=== PATIENT | male | born 1985 | race Caucasian/White ===

== ENCOUNTER 2017-04-09 19:09 | Observation (INO) | payer SELFPAY ==
[~2017-04-09] VITALS: Ht 172.7 cm; Wt 75.5 kg
--- NOTE | ~2017-04-09 | HP ---
PATIENT'S NAME: JOLYNN [facility] AGE: 31 Y [address] ROOM: [place] [address] LOCATION: [facility] ADMIT DATE: 04/09/2017 History & Physical DISCHARGE DATE: 04/10/2017 FAMILY PHYSICIAN: Physician, Unknown ATTENDING PHYSICIAN: Zach Bowie DATE OF SERVICE: 04/09/2017 CHIEF COMPLAINT: Rattlesnake bite, right midanterior lower leg. HISTORY OF PRESENT ILLNESS: A 31-year-old gentleman who was working with the [employer] was bit by a rattlesnake on the right green and was taken to [facility], where he was started on IV fluids, basic lab work was initiated, and he was given 4 vials of antivenom and he was transferred here for further medical care. On my evaluation, he is saying that he is having some pain in the right leg and he did not see the snake come in. He is not complaining of any burning or itching, but there is some pain at the site of the bite. On further inquiry, he denied any fever, chills, headache, trouble with the eyes, any chest pain, shortness of breath, any extremity swelling, burning on urination, constipation, or diarrhea. HOME MEDICATIONS: None. PAST MEDICAL HISTORY: None. ALLERGIES: NONE. SOCIAL HISTORY: The patient smokes 1 to 2 pack per day. FAMILY HISTORY: Negative for any premature coronary artery disease. REVIEW OF SYSTEMS: All other systems were reviewed and were negative except what is mentioned in the HPI. PHYSICAL EXAMINATION: VITAL SIGNS: Reviewed and were within normal limits. HEENT: Head: Atraumatic, normocephalic. Eyes: Nonicteric. No pallor. PATIENT'S NAME: JOLYNN [facility] AGE: 31 Y [address] ROOM: [place] [address] LOCATION: [facility] ADMIT DATE: 04/09/2017 History & Physical DISCHARGE DATE: 04/10/2017 FAMILY PHYSICIAN: , Unknown ATTENDING PHYSICIAN: Zach Bowie Oropharynx: Moist mucous membranes. CARDIOVASCULAR: S1, S2. No murmurs, gallops, or rubs. LUNGS: Clear to auscultation bilaterally. ABDOMEN: Soft, nontender, nondistended. Bowel sounds present. EXTREMITIES: Right lower leg at the anterior green shows 2 entry wounds of snakebite, mild erythema around the site, some tenderness noted, and no drainage present. PSYCH: Normal affect, mood, and speech. LABORATORY DATA: All the lab work done in the emergency department was within normal limit including coagulation workup. ASSESSMENT: 1. Rattlesnake bite. 2. Tobacco abuse disorder. PLAN: We are going to admit this patient to the hospital. We will continue to monitor him. If erythema is expanding, we are going to give another dose of antivenom. Poison Control will be contacted and if needs the patient will be transferred for higher medical care. MD ISABELA WOLFF/sofiya /[id number] D: [id number] T: [id number] HISTORY & PHYSICAL
--- NOTE | ~2017-04-09 | DS ---
PATIENT'S NAME: JENNIFER NEIL [facility] AGE: 31 Y [address] [place]OM: [facility] [place] [address] LOCATION: [facility] ADMIT DATE: 04/09/2017 Discharge Summary DISCHARGE DATE: 04/10/2017 FAMILY PHYSICIAN: Physician, Unknown ATTENDING PHYSICIAN: Zach Bowie PRINCIPAL DIAGNOSES: 1. Rattlesnake bite to the right mid green. 2. Worsening erythema and clinical status secondary to snake bite. HOSPITAL COURSE: This is a 31-year-old gentleman who was admitted with a rattlesnake bite to the right chin. He received 2 doses of antivenom, but he continues to have progression of his erythema, tenderness, as well as pain. Poison Control recommended transferring the patient to higher level of care, and my colleague, Dr. Guadalupe, arranged the transfer and the patient was transferred to the [facility]. Lab work during the course of the hospitalization was unremarkable. MD ISABELA WOLFF/sofiya /[id number] d: 05/14/17512 t: 05/15/172027, DISCHARGE SUMMARY
--- NOTE | ~2017-04-09 | ER ---
PATIENT'S NAME: JOLYNN [facility] AGE: 31 Y [address] ROOM: [place] [address] LOCATION: [facility] ADMIT DATE: 04/09/2017 ER/Outpatient Report DISCHARGE DATE: FAMILY PHYSICIAN: Physician, Unknown ATTENDING PHYSICIAN: Rizwan Ring Admission date and time documented on the medical record. I saw the patient at 1920 hours. CHIEF COMPLAINT: Rattlesnake bite, right mid anterior lower leg. HISTORY OF PRESENT ILLNESS: The patient is a 31-year-old male who was bit by a rattlesnake, mid anterior right lower leg, that he says about around 1700 hours. He was seen in hospital in [place], [place]. He was started on IV fluids, given a liter. He was given 4 vials of antivenom in 250 mL of normal saline and given over an hour. That initial antivenom dose was finished just prior to arrival here by air ambulance transfer. On arrival, the patient is awake, alert, responsive. No chest pain or shortness of breath. No numbness or tingling. He does have pain around the bite site, that has increased a little bit in swelling and area of tenderness. There is no erythema. No drainage. He does have some pain going into his mid calf posteriorly. No other neuro changes. No vital sign abnormalities. HOME MEDICATIONS: None. ALLERGIES: NONE. SOCIAL HISTORY: The patient smokes 1-2 packs cigarettes a day. Occasional marijuana. Nondrinker. SIGNIFICANT PAST MEDICAL HISTORY: ADHD, tobacco abuse, otherwise negative. OPERATIONS: None. REVIEW OF SYSTEMS: All systems reviewed by me are negative with the exception of those discussed in the history of present illness. PATIENT'S NAME: JOLYNN [facility] AGE: 31 Y [address] ROOM: [place], [place] [address] LOCATION: [facility] ADMIT DATE: 04/09/2017 ER/Outpatient Report DISCHARGE DATE: FAMILY PHYSICIAN: Physician, Unknown ATTENDING PHYSICIAN: Rizwan Ring PHYSICAL EXAMINATION: VITAL SIGNS: Temperature 97.4 tympanic, pulse 65, respirations 16, blood pressure 125/78, and O2 saturation on room air was 99%. HEAD: Normocephalic. EYES, EARS, NOSE, THROAT: Clear. Mucous membranes moist. NECK: No nuchal rigidity. No findings of adenopathy. No tenderness. Range of motion full. SPINE: Negative. LUNGS: Clear. Good air flow. Few scattered rhonchi from smoking, otherwise, clear. HEART: Regular. Pulses palpable. No chest wall or ribcage pain to palpation. ABDOMEN: Soft, nondistended, and nontender. Good bowel tones. No organomegaly or abnormal mass palpable. EXTREMITIES: Intact other than the right lower leg. The patient has a snake bite puncture wounds, mid anterior right lower leg, with some swelling and tenderness surrounding this area moving into his calf posteriorly. NEUROVASCULAR: Intact. SKIN: Clear. No skin eruptions or rash other than the bite marybeth in the right mid anterior lower leg. EMERGENCY ROOM COURSE: Did review all of the laboratory studies from [place], [place], see on the chart. Again, the patient did receive 1 L normal saline, 4 vials of antivenom in 250 mL of normal saline, that infused over an hour. He also got 50 mg of Benadryl IV en route in the helicopter. I did go ahead and redraw CBC, CMS, CPK, pro-time, and fibrinogen levels, results pending. I did discuss the patient with Dr. Bowie, hospitalist. Dr. Bowie did come in to the emergency room to see the patient. We will admit the patient the hospital. IMPRESSION: 1. Rattlesnake bite, mid right anterior lower leg. 2. Tobacco abuse. 3. Attention-deficit hyperactivity disorder. PLAN: The patient will be admitted to the hospital for observation and treatment as needed. Awaiting lab results. Dr. Bowie here to see the patient. Discussion ensued with the patient concerning my findings and recommendations, he understands. RIZWAN IRNG MD PATIENT'S NAME: JENNIFER NEIL [facility] AGE: 31 Y [address] ROOM: [place] [address] LOCATION: [facility] ADMIT DATE: 04/09/2017 ER/Outpatient Report DISCHARGE DATE: FAMILY PHYSICIAN: Physician, Unknown ATTENDING PHYSICIAN: Rizwan Ring/modl /[id number] d: 04/09/172004 t: 04/10/17 1814, OUTPATIENT REPORT
[2017-04-09 19:41] LABS: BASOPHIL # 0.1 K/uL (0.0-0.2); BASOPHIL % 0.6 %; EOSINOPHIL # 0.5 K/uL (0.0-0.5); EOSINOPHIL % 3.4 %; HEMATOCRIT 41.9 % (37.0-53.0); HEMOGLOBIN 15.1 g/dL (12.0-17.0); IMMATURE GRANULOCYTE # 0.1 K/uL (0.0-0.3); IMMATURE GRANULOCYTE % 0.3 %; LYMPHOCYTE % 19.6 %; MCH 33.6 pg (27.0-34.0); MCV 93.1 fl (83.0-98.0); MONOCYTE # 0.9 K/uL (0.0-1.0); MONOCYTE % 5.6 %; MPV 10.8 fl (9.4-12.4); NEUTROPHIL # (ANC) 10.9 K/uL (1.4-9.0); NEUTROPHIL % 70.5 %; NRBC % 0 /100WBC (0-0.00); PLATELET COUNT 188 K/uL (150-450); RDW-CV 12.6 % (11.9-14.6); WBC 15.4 K/uL (4.0-11.0)
[2017-04-09 19:48] LABS: INR - (THERAPEUTIC) 1.04 (0.92-1.07); PROTIME 10.9 SECONDS (9.8-11.4)
[2017-04-09 20:09] LABS: ALBUMIN 3.7 gm/dL (3.5-5.0); ANION GAP 13.8 (10.0-19.0); CALCIUM 8.1 mg/dL (8.5-10.5); CREATININE 1.1 mg/dL (0.6-1.3); POTASSIUM 3.8 mMol/L (3.7-5.1); TOTAL BILIRUBIN 0.5 mg/dL (0.0-1.5); TOTAL PROTEIN 6.4 g/dL (6.0-8.4)
[2017-04-09 23:08] LABS: BASOPHIL # 0.1 K/uL (0.0-0.2); BASOPHIL % 0.6 %; EOSINOPHIL # 0.6 K/uL (0.0-0.5); EOSINOPHIL % 3.9 %; HEMATOCRIT 39.8 % (37.0-53.0); HEMOGLOBIN 14.4 g/dL (12.0-17.0); IMMATURE GRANULOCYTE % 0.2 %; LYMPHOCYTE # 3.5 K/uL (0.8-4.0); LYMPHOCYTE % 24.1 %; MCH 33.6 pg (27.0-34.0); MCHC 36.2 gm/dL (32.0-36.5); MONOCYTE # 0.9 K/uL (0.0-1.0); MONOCYTE % 6.3 %; NEUTROPHIL # (ANC) 9.5 K/uL (1.4-9.0); NEUTROPHIL % 64.9 %; NRBC % 0 /100WBC (0-0.00); PLATELET COUNT 185 K/uL (150-450); RBC 4.28 M/uL (4.00-6.00); RDW-CV 12.7 % (11.9-14.6); WBC 14.7 K/uL (4.0-11.0)
[2017-04-09 23:16] LABS: INR - (THERAPEUTIC) 1.07 (0.92-1.07); PROTIME 11.2 SECONDS (9.8-11.4)
[2017-04-09 23:24] LABS: ANION GAP 10.6 (10.0-19.0); CALCIUM 7.8 mg/dL (8.5-10.5); CREATININE 1.1 mg/dL (0.6-1.3); POTASSIUM 3.6 mMol/L (3.7-5.1)
== END 2017-04-10 02:40 | disposition other institution (70) ==
LOC: GACC 19:09 → GICU 19:50
PROVIDERS: Emergency Medicine; ADMIT Internal Medicine
DX: T63.011A Toxic effect of rattlesnake venom, accidental (unintentional), initial encounter (principal); F90.9 Attention-deficit hyperactivity disorder, unspecified type; F17.210 Nicotine dependence, cigarettes, uncomplicated
CPT/HCPCS: G0378; J0840; J1200; J2270; J3010; J7030; J7050; J7120